=== PATIENT | female | born 1985 | race Caucasian/White ===

== ENCOUNTER 2016-09-07 02:57 | Outpatient (CLI) | payer BC ==
[~2016-09-07] VITALS: Ht 162.6 cm; Wt 119.1 kg
[~2016-09-07 02:57] MED LIST: ACET-1600 PO; ASCO500T12 PO; FERR325T20 PO; IBUP-1222 PO; LABE100T3 PO; OXYC-302 PO; PREN1TAB27 PO; [UNRECOGNIZED DRUG - CODE] PO
[2016-09-07 04:24] VITALS: BP 132/83
== END 2016-09-07 04:25 | disposition home or self-care (01) ==
LOC: LDOP 02:57
PROVIDERS: ATTEND Obstetrics & Gynecology
DX: O62.9 Abnormality of forces of labor, unspecified (principal); O11.3 Pre-existing hypertension with pre-eclampsia, third trimester; Z3A.39 39 weeks gestation of pregnancy
CPT/HCPCS: 59025; 99211; G0463

== ENCOUNTER 2016-09-07 13:51 | Inpatient (IN) | payer BC ==
[~2016-09-07] VITALS: Ht 162.6 cm; Wt 119.1 kg
[2016-09-07 14:19] VITALS: BP 132/86
[2016-09-07] MEDS ORDERED: OXYTOCIN 30U/ 0.9% NaCL 500ML 500 ML IV ONE (16:28)
[2016-09-07] MEDS ORDERED: D5%-LACTATED RINGERS 1,000 ML IV SCH (16:28)
[2016-09-07] MEDS ORDERED: AMPICILLIN 2 GM in SODIUM CHLORIDE 0.9% 100 ML IVPB STA (16:28)
[2016-09-07] MEDS ORDERED: FENTANYL PF 100 MCG/2ML IV PRN (16:30)
[2016-09-07] MEDS ORDERED: ONDANSETRON 2MG/ML, 2ML IVPush PRN (16:30)
[2016-09-07] MEDS ORDERED: TERBUTALINE 1 MG/ML, 1ML IVPush PRN (16:30)
[2016-09-07] MEDS ORDERED: FENTANYL PF 100 MCG/2ML IVPush PRN (16:30)
[2016-09-07] MEDS: LACTATED RINGERS 1,000 ML IV SCH ×2 (16:39→20:05)
[2016-09-07] MEDS ORDERED: FENTANYL PF 100 MCG/2ML ONE (16:47)
[2016-09-07] MEDS ORDERED: LACTATED RINGERS 1,000 ML IV SCH (17:43)
[2016-09-07] MEDS ORDERED: FENTANYL/BUPIV./NS/PF 250 ML EPIDCONT SCH (17:43)
[2016-09-07] MEDS ORDERED: BUPIVACAINE/PF 0.25% ONE (17:45)
[2016-09-07] MEDS ORDERED: FENTANYL/BUPIV./NS/PF 250 ML EPIDCONT ONE ×2 (17:45→17:47)
[2016-09-07] MEDS ORDERED: BUPIVACAINE 0.25% ONE (17:47)
[2016-09-07] MEDS ORDERED: LACTATED RINGERS 1,000 ML IVBOLUS PRN (18:00)
[2016-09-07] MEDS ORDERED: EPHEDRINE 50 MG/ML, 1ML IVPush PRN (18:00)
[2016-09-07] MEDS ORDERED: NALOXONE 0.4 MG/ML, 1ML IVPush PRN (18:00)
[2016-09-07] MEDS ORDERED: OXYTOCIN 30U/ 0.9% NaCL 500ML 500 ML ONE (18:42)
[2016-09-07] MEDS ORDERED: NEWBORN KIT ONE (18:42)
[2016-09-07] MEDS ORDERED: AMPICILLIN 1 GM in SODIUM CHLORIDE 0.9% 50 ML IVPB SCH (20:30)
[2016-09-07] MEDS: OXYTOCIN 30U/ 0.9% NaCL 500ML 500 ML IV SCH (22:26)
[2016-09-07] MEDS ORDERED: ACETAMINOPHEN 325 MG TABLET PO PRN ×2 (22:30)
[2016-09-07] MEDS ORDERED: METHYLERGONOVINE 0.2 MG/ML IM PRN (22:30)
[2016-09-07] MEDS ORDERED: HYDROcodone/APAP 5/325 TABLET PO PRN (22:30)
[2016-09-07] MEDS ORDERED: MISOPROSTOL 200 MCG TABLET PR PRN (22:30)
[2016-09-07] MEDS ORDERED: IBUPROFEN 600 MG TABLET PO PRN (22:30)
[2016-09-08 00:06] VITALS: BP 113/71
[2016-09-08 03:34] VITALS: BP 110/73
[2016-09-08] MEDS: OXYTOCIN 30U/ 0.9% NaCL 500ML 500 ML IV SCH (05:33)
[2016-09-08 07:09] VITALS: BP 113/65
[2016-09-08] MEDS: HYDROcodone/APAP 5/325 TABLET PO PRN ×3 (08:53→23:12)
[2016-09-08] MEDS: PRENATAL VIT/IRON/FA 1 EACH TABLET PO SCH (08:53)
[2016-09-08] MEDS: DOCUSATE 100 MG CAPSULE PO PRN ×2 (08:53→21:18)
[2016-09-08 12:05] VITALS: BP 121/69
[2016-09-08 16:05] VITALS: BP 121/65
[2016-09-08 19:15] VITALS: BP 133/79
[2016-09-09 01:15] VITALS: BP 116/72
[2016-09-09] MEDS: HYDROcodone/APAP 5/325 TABLET PO PRN ×2 (03:44→08:27)
[2016-09-09 03:52] VITALS: BP 114/74
[2016-09-09] MEDS ORDERED: MEASLES,MUMPS&RUBELLA VACC/PF 0.5 ML SQ-VACC ONE (04:00)
[2016-09-09] MEDS: DOCUSATE 100 MG CAPSULE PO PRN (08:06)
[2016-09-09] MEDS: PRENATAL VIT/IRON/FA 1 EACH TABLET PO SCH (08:06)
[2016-09-09 08:15] VITALS: BP 134/77
[2016-09-09] MEDS: OXYTOCIN 30U/ 0.9% NaCL 500ML 500 ML IV SCH (14:26)
[2016-09-09] MEDS ORDERED: IBUP-1222 PO (14:43)
[2016-09-09] MEDS ORDERED: HYDR-3240 PO (14:44)
== END 2016-09-09 17:50 | disposition home or self-care (01) | DRG 775 ==
LOC: LDOP 13:51 → LDIP 16:15 → 2NW 23:58
PROVIDERS: ADMIT Obstetrics & Gynecology; ATTEND Obstetrics & Gynecology
PROC: 10E0XZZ Delivery of Products of Conception, External Approach (ICD-10-PCS; principal; 2016-09-07)
PROC: 0KQM0ZZ Repair Perineum Muscle, Open Approach (ICD-10-PCS; 2016-09-07)
PROC: 10907ZC Drainage of Amniotic Fluid, Therapeutic from Products of Conception, Via Natural or Artificial Opening (ICD-10-PCS; 2016-09-07)
PROC: 3E0R3CZ (ICD-10-PCS; 2016-09-07)
PROC: 00HU33Z Insertion of Infusion Device into Spinal Canal, Percutaneous Approach (ICD-10-PCS; 2016-09-07)
DX: O99.824 Streptococcus B carrier state complicating childbirth (principal); Z68.42 Body mass index [BMI] 45.0-49.9, adult; O99.214 Obesity complicating childbirth; E66.01 Morbid (severe) obesity due to excess calories; O70.1 Second degree perineal laceration during delivery; Z3A.39 39 weeks gestation of pregnancy; Z23 Encounter for immunization; Z37.0 Single live birth
CPT/HCPCS: 36415; 85025; 86850; 86900; J0290; J3010; J3490; J2590; J7120